=== PATIENT | female | born 1965 | race Hispanic/Latino ===

== ENCOUNTER 2019-10-19 09:00 | Observation (INO) | payer OTHER, MEDICARE ==
[2019-10-18 14:16] LABS: BASOPHILS % (AUTO) 0.8 % (0.0-5.0); EOSINOPHILS % (AUTO) 2.2 % (0.0-8.0); HEMATOCRIT 40.5 % (36-48); LYMPHOCYTES % (AUTO) 27.6 % (21.0-51.0); MEAN CORPUSCULAR HEMOGLOBIN 29.3 pg (27.0-33.0); MEAN CORPUSCULAR HGB CONC 32.6 g/dL (32.0-36.0); MEAN CORPUSCULAR VOLUME 89.8 fL (79-99); MONOCYTES % (AUTO) 8.3 % (3.0-13.0); NEUTROPHILS % (AUTO) 60.8 % (40.0-77.0); PLATELET COUNT (AUTO) 238 K/uL (130-400); RED BLOOD CELL COUNT(AUTO) 4.51 MIL/uL (4.00-5.50); RED CELL DISTRIBUTION WIDTH 12.4 % (11.0-15.5); WHITE BLOOD COUNT (AUTO) 7.7 K/uL (4.8-10.8)
[2019-10-18 14:23] VITALS: BP 136/74
[2019-10-18 14:28] LABS: CREATININE 0.9 mg/dL (0.5-1.5); POTASSIUM 4.1 mmol/L (3.5-5.1)
[~2019-10-19] VITALS: Ht 152.4 cm; Wt 104.3 kg
[2019-10-19] VITALS (22 sets, daily range): BP systolic 113–163; BP diastolic 48–96
[~2019-10-19 09:00] MED LIST: ATOR40TA71 PO; CETI10TA57 PO; ESCI10TA54 PO; EXEN5PEN2 SQ; LACTATED RINGERS 1000ML 1,000 ML IV SCH
[2019-10-19] MEDS: CLINDAMYCIN 900 MG/D5% WATER 50 ML IV SCH ×3 (10:30→20:11)
[2019-10-19] MEDS ORDERED: SODIUM CHLORIDE 0.9% 1000ML 1,000 ML IV ONE (10:45)
--- NOTE | 2019-10-19 11:10 | NUR ---
POTENTIAL FOR INFECTION: NO SHAVING NEEDED TO RIGHT KNEE / RIGHT LEG ASSESSED PER LOIDA ARMSTRONG. WIPED RIGHT KNEE / RIGHT LEG WITH DARIEN: 2% CHLORHEXIDINE GLUCONATE CLOTH PATIENTS PRE-OP SKIN PREP PER LOIDA ARMSTRONG.
[2019-10-19] MEDS ORDERED: ROPIVACAINE 0.5% 5MG/ML 30ML IJ ONE (12:23)
[2019-10-19] MEDS ORDERED: MIDAZOLAM HCL 1 MG/ML 2ML VIAL ONE (12:24)
[2019-10-19] MEDS ORDERED: PROPOFOL 10 MG/ML 20ML VIAL IV ONE (12:24)
[2019-10-19] MEDS ORDERED: LIDOCAINE PF 2% 5ML ABBOJECT ONE (12:24)
[2019-10-19] MEDS ORDERED: FENTANYL CITRATE PF 50 MCG/1 ML 5ML AMP IV ONE (12:25)
[2019-10-19] MEDS ORDERED: ROCURONIUM 10MG/1ML SYR 10 MG/ML ML ONE (12:25)
[2019-10-19] MEDS ORDERED: EPHEDRINE SULFATE 50 MG/ML AMPULE ONE (12:49)
[2019-10-19] MEDS ORDERED: TRANEXAMIC ACID 1000MG/10ML ONE (12:50)
[2019-10-19] MEDS ORDERED: GLYCOPYRROLATE 1 MG/5 ML SYRINGE ONE (13:08)
[2019-10-19] MEDS ORDERED: DEXAMETHASONE SOD PHOSPHATE 10MG/ML 1ML VIAL ONE (13:08)
[2019-10-19] MEDS ORDERED: ONDANSETRON HCL 4 MG/2 ML VIAL ONE (13:08)
[2019-10-19] MEDS ORDERED: NEOSTIGMINE 5MG/5ML SYR IV ONE (13:08)
[2019-10-19] MEDS ORDERED: TRAMADOL HCL 50 MG TABLET PO PRN (15:00)
[2019-10-19] MEDS ORDERED: ONDANSETRON HCL 4 MG/2 ML VIAL IVP PRN (15:00)
[2019-10-19] MEDS ORDERED: FERROUS FUMARATE 324 MG TABLET PO PRN (15:00)
[2019-10-19] MEDS ORDERED: OXYCODONE HCL 5 MG TAB PO PRN (15:00)
[2019-10-19] MEDS ORDERED: DiphenhydrAMINE HCL 50 MG/ML VIAL IVP PRN (15:00)
[2019-10-19] MEDS: ACETAMINOPHEN EXTRA STRENGTH 500 MG TABLET PO SCH ×2 (15:00→22:55)
[2019-10-19] MEDS ORDERED: KETOROLAC TROMETHAMINE 15MG/ML IV PRN (15:00)
[2019-10-19] MEDS ORDERED: POTASSIUM CHLORIDE 20MEQ/100ML 100 ML IV PRN (15:00)
[2019-10-19] MEDS ORDERED: POTASSIUM CHLORIDE 20 MEQ ERTAB PO PRN (15:00)
[2019-10-19] MEDS ORDERED: CALCIUM CARBONATE 500 MG TABLET PO PRN (15:00)
[2019-10-19] MEDS ORDERED: POTASSIUM CHLORIDE 10% ELIXIR 20 MEQ/15 ML UDCUP PO PRN (15:00)
[2019-10-19] MEDS ORDERED: MORPHINE SULFATE 2 MG/ML 1ML SYG ONE (15:33)
[2019-10-19] MEDS ORDERED: MEPERIDINE-PF 25 MG/ML SYG ONE (15:47)
[2019-10-19] MEDS ORDERED: ACETAMINOPHEN-CODEINE 300/30MG TAB PO PRN (17:15)
[2019-10-19] MEDS: SODIUM CHLORIDE 0.9% 1000ML 1,000 ML IV SCH (17:43)
[2019-10-19] MEDS: PREGABALIN 25 MG CAP PO SCH (20:12)
[2019-10-19] MEDS: CELECOXIB 200 MG CAP PO SCH (20:12)
[2019-10-19] MEDS: ASPIRIN 325 MG TABLET PO SCH (20:12)
[2019-10-19] MEDS: OXYCODONE HCL 5 MG TAB PO PRN ×2 (20:13→22:56)
[2019-10-19] MEDS: FAMOTIDINE 20MG TAB 20 MG TAB PO SCH (20:17)
[2019-10-19] MEDS ORDERED: ATORVASTATIN CALCIUM 40 MG TABLET PO SCH (21:00)
[2019-10-19] MEDS: INSULIN HUMULIN R 100 UNIT/ML 3ML SQ SCH (21:05)
--- NOTE | 2019-10-19 23:00 | NUR ---
DANGLE PATIENT ASSISTED TO EDGE OF BED TO DANGLE HER LEGS PER ORDERS. PATIENT TOLERATED WELL SO PATIENT ASSISTED BACK TO BED.
[2019-10-20] MEDS: SODIUM CHLORIDE 0.9% 1000ML 1,000 ML IV SCH (00:58)
[2019-10-20] MEDS: OXYCODONE HCL 5 MG TAB PO PRN ×2 (02:05→08:09)
[2019-10-20 03:40] VITALS: BP 115/56
[2019-10-20] MEDS: CLINDAMYCIN 900 MG/D5% WATER 50 ML IV SCH (03:58)
[2019-10-20 05:59] LABS: MEAN CORPUSCULAR HEMOGLOBIN 29.3 pg (27.0-33.0); MEAN CORPUSCULAR HGB CONC 32.7 g/dL (32.0-36.0); MEAN CORPUSCULAR VOLUME 89.7 fL (79-99); PLATELET COUNT (AUTO) 205 K/uL (130-400); RED BLOOD CELL COUNT(AUTO) 3.68 MIL/uL (4.00-5.50); RED CELL DISTRIBUTION WIDTH 12.3 % (11.0-15.5); WHITE BLOOD COUNT (AUTO) 10.6 K/uL (4.8-10.8)
[2019-10-20 06:06] LABS: HEMOGLOBIN A1C 6.9 % (4.0-6.0)
[2019-10-20 06:12] LABS: CREATININE 0.9 mg/dL (0.5-1.5); POTASSIUM 4.5 mmol/L (3.5-5.1)
[2019-10-20] MEDS: ACETAMINOPHEN EXTRA STRENGTH 500 MG TABLET PO SCH ×2 (06:13→16:08)
[2019-10-20] MEDS: INSULIN HUMULIN R 100 UNIT/ML 3ML SQ SCH ×3 (06:16→16:30)
[2019-10-20 07:48] VITALS: BP 108/58
[2019-10-20] MEDS ORDERED: CETIRIZINE HCL 5 MG TABLET PO SCH (09:00)
[2019-10-20] MEDS ORDERED: POLYETHYLENE GLYCOL 3350 17 GM POWD.PACK PO SCH (09:00)
[2019-10-20] MEDS ORDERED: CITALOPRAM 20 MG TABLET PO SCH (09:00)
[2019-10-20] MEDS: PREGABALIN 25 MG CAP PO SCH (09:33)
[2019-10-20] MEDS: ASPIRIN 325 MG TABLET PO SCH (09:33)
[2019-10-20] MEDS: FAMOTIDINE 20MG TAB 20 MG TAB PO SCH (09:33)
[2019-10-20] MEDS: CELECOXIB 200 MG CAP PO SCH (09:33)
--- NOTE | 2019-10-20 10:00 | NUR ---
CM Note: [facility] not in network; pending approval for [facility] CM spoke to Emelina w/[facility], pt insurance still showing [facility], unable to approve pt. Pt made aware ok w/[facility], BOB signed. Faxed order, clinicals, PT to [facility], confirmation received. Primary nurse aware. CM to cont to follow up.
--- NOTE | 2019-10-20 10:31 | NUR ---
DCP CM met with pt discussed dc plans. Pt is independent prior to surgery, lives at home w/spouse Khalif Cintron. Pt verbalized she has her own current working standard walker no wheels, cane, and shower chair. Denies any other equipments/services. Feels safe to go back home, spouse able to assist with transportation and needs as necessary. Agreeable for home w/HH and requested 3 in 1 chair if insurance will pay, BOB signed for [facility] and [facility]. DC plan to home w/HH and DME. CM to cont to follow up. Faxed order and clinicals to [facility] and [facility] for 3 in 1 chair, confirmation received. Pt pending approval for HH and DME, and delivery in room for 3 in 1 chair. Primary nurse aware. CM to cont to follow up. Addendum: 10/20/19 at 1033 by MOUNA JOHNSON LVN CM Amended: Links added.
[2019-10-20 11:28] VITALS: BP 101/53
--- NOTE | 2019-10-20 12:00 | NUR ---
CM Note: [facility] not in network CM spoke to Natalia brian/[facility], verbalized pt belong to a different physician network, unable to process DME. pt has denial. pt agreeable to any DME company, BOB signed. CM to cont to follow up.
--- NOTE | 2019-10-20 12:01 | NUR ---
CM Note: [facility] pending approval and delivery of 3 in 1 chair. CM faxed order and clinicals to [facility], confirmation received. Spoke to Sammi will wait for order and clinicals. Pt pending approval for 3 in 1 chair, already has own working current standard walker no wheels. Verbalized as for HH currently in full capacity diverted request to [facility]. Forwarded order, clinicals, and PT, confirmation received. Primary nurse aware. CM to cont to follow up.
--- NOTE | 2019-10-20 14:30 | NUR ---
CM Note: pending approval CM spoke to Barb brian/[employer], received order and clinicals this afternoon, currently working on pt, checking benefits at this time. Pt pending approval. Primary nurse aware. CM to cont to follow up.
--- NOTE | 2019-10-20 14:40 | NUR ---
CM Note: [facility] not in network; pending approval for [facility] CM spoke to Emelina w/[facility], pt insurance still showing [facility], unable to approve pt. Pt made aware ok w/[facility], BOB signed. Faxed order, clinicals, PT to [facility], confirmation received. Primary nurse aware. CM to cont to follow up. Addendum: 10/20/19 at 1443 by MOUNA JOHNSON LVN CM ENTERED WRONG TIME.
--- NOTE | 2019-10-20 14:43 | NUR ---
CM Note: [facility] pending approval.
--- NOTE | 2019-10-20 15:56 | NUR ---
1051 had pt sign [facility] Letter, Faxed to [phone] and placed in chart under consent tab
[2019-10-20 16:26] VITALS: BP 114/50
--- NOTE | 2019-10-20 18:45 | NUR ---
SPOKE TO DR. FRIAS REGARDING RIGHT KNEE XRAY RESULTS. PER DR. FRIAS, OKAY TO DISCHARGE PATIENT AT THIS TIME.
--- NOTE | 2019-10-20 19:30 | NUR ---
DISCHARGE PATIENT GIVEN DISCHARGE INSTRUCTIONS VIA TEACH BACK. 22G TO LEFT WRIST REMOVED, TIP INTACT. PATIENT TO FOLLOW UP WITH [facility] FOR PHYSICAL THERAPY TOMORROW. REPORT GIVEN TO LORENE BUSTAMANTE RN. RX GIVEN FOR TRAMADOL, TYLENOL#3, SURFAK, OMEPRAZOLE AND ASA. DME EQUIPMENT DELIVERED TO PATIENT'S ROOM. PATIENT TO FOLLOW UP WITH DR. FRIAS ON 11/10/19 AT 1345. PATIENT GIVEN INSTRUCTIONS REGARDING, INCISION CARE, MEDS, SIGNS AND SYMPTOMS OF INFECTION TO REPORT TO MD. PATIENT STABLE AND DENIES ANY PAIN AT THIS TIME.
[2019-10-22] MEDS ORDERED: BISACODYL 10 MG SUPP.RECT RC PRN (15:00)
== END 2019-10-20 21:00 | disposition home health service (06) ==
LOC: EDSTATUS 09:00 → DAHIP 09:31 → 4AH 15:23
PROVIDERS: ADMIT Orthopaedic Surgery; ATTEND Orthopaedic Surgery
DX: M17.11 Unilateral primary osteoarthritis, right knee (principal); E11.9 Type 2 diabetes mellitus without complications; E78.5 Hyperlipidemia, unspecified; F41.9 Anxiety disorder, unspecified; F32.9 Major depressive disorder, single episode, unspecified; E66.9 Obesity, unspecified; Z90.710 Acquired absence of both cervix and uterus; Z90.49 Acquired absence of other specified parts of digestive tract; Z68.41 Body mass index [BMI] 40.0-44.9, adult; Z88.0 Allergy status to penicillin; Z79.82 Long term (current) use of aspirin; Z79.899 Other long term (current) drug therapy
CPT/HCPCS: 27447; 36415 ×2; 73560; 73562; 80048 ×2; 82948 ×6; 83036; 85025; 85027; 96365; 96366; 96372 ×2; 97039; 97116 ×2; 97161; 97530 ×2; A4215; A4221; A4222; A4223; A4510; A4600; A4649 ×4; A4663; A4930; A5120; A6223; A6260; C1763; C1776; G0378 ×17; G8978; G8979; G8980; G8981; G8982; G8983; J1100; J1815 ×2; J2001; J2175; J2250; J2405; J2704; J2710; J2795; J3010; J3490 ×6; J7030 ×2